=== PATIENT | male | born 1965 | race Two or more races ===

== ENCOUNTER 2016-03-29 14:41 | Emergency (ER) | payer OTHER ==
[2016-03-29] MEDS ORDERED: OSELTAMIVIR 75 MG CAPSULE PO STA (15:06)
[2016-03-29] MEDS ORDERED: OSELTAMIVIR 75 MG CAPSULE PO ONE (15:07)
[2016-03-29] MEDS ORDERED: ONDANSETRON ODT 4 MG TABLET TL STA (15:08)
[2016-03-29] MEDS ORDERED: ONDANSETRON ODT 4 MG TABLET ONE (15:09)
== END 2016-03-29 15:15 | disposition home or self-care (01) ==
DX: R09.81 Nasal congestion (principal); R05 Cough; R53.81 Other malaise; M79.1 Myalgia; R53.1 Weakness; Z85.028 Personal history of other malignant neoplasm of stomach; Z92.21 Personal history of antineoplastic chemotherapy; Z92.3 Personal history of irradiation
CPT/HCPCS: 99283; A9270; Q0162

== ENCOUNTER 2020-10-27 08:57 | Emergency (ER) | payer OTHER ==
[2020-10-27 09:09] VITALS: BP 110/78
--- NOTE | 2020-10-27 09:20 | ED Physician Documentation ---
PD HPI OPHTHO - Stated complaint Stated Complaint: R EYE CONCERN - Chief complaint Chief Complaint: Heent - History obtained from History obtained from: Patient - History of Present Illness Timing - onset: Today (Showering this morning, he looked in the mirror and noted some redness around the right medial surface of the eye. There was no blood out from the eye just on this subconjunctival area. No noted trauma. No irritation. No change in vision.) Timing - details: Abrupt onset (he is not sure when started but it was not there when getting ready for bed last night.) Location: Right Quality / character: No: Burning, Aching Associated symptoms: Redness (medial aspect right eye.). No: FB sensation, Decreased vision, Loss of vision Contributing factors: No: FB, Blunt trauma, Wears contacts Similar symptoms before: Has not had sx before Recently seen: Not recently seen Review of Systems Constitutional: denies: Fever, Chills Eyes: denies: Decreased vision, Photophobia, Discharge, Irritation Nose: denies: Rhinorrhea / runny nose, Congestion Throat: denies: Sore throat Respiratory: denies: Cough PD PAST MEDICAL HISTORY - Past Medical History Cardiovascular: None GI: Other - Past Surgical History Past Surgical History: No - Present Medications Home Medications: Ambulatory Orders Medication Instructions Recorded Confirmed Zolpidem Tartrate [Ambien] 1 tab PO PRN PRN 10/27/20 10/27/20 - Allergies Allergies/Adverse Reactions: Allergies Allergy/AdvReac Type Severity Reaction Status Date / Time No Known Drug Allergies Allergy Verified 10/27/20 09:09 - Social History Does the pt smoke?: No Smoking Status: Never smoker Does the pt drink ETOH?: No Does the pt have substance abuse?: No - Immunizations Immunizations are current?: Yes - POLST Patient has POLST: No PD ED PE NORMAL - Vitals Vital signs reviewed: Yes - General General: Alert and oriented X 3, No acute distress, Well developed/nourished - HEENT HEENT: PERRL, EOMI, Other (There is a small subconjunctival hemorrhage on the right medial eye from the 2 to 6 o'clock position. No obvious foreign body. Anterior and posterior chambers appear normal.) Results - Vitals Vitals: Vital Signs - 24 hr 10/27/20 09:02 Temperature 36.5 C Heart Rate 63 Respiratory 16 Rate Blood Pressure 110/78 O2 Saturation 99 Oxygen O2 Source Room air Departure - Departure Disposition: 01 Home, Self Care Clinical Impression: Subconjunctival hematoma Qualifiers: Laterality: right Qualified Code(s): H11.31 - Conjunctival hemorrhage, right eye Condition: Stable Record reviewed to determine appropriate education?: Yes Instructions: ED Eye Injury Subconj Hemorrhage Follow-Up: Marina Britt MD [Primary Care Provider] - Comments: A small blood vessel under the top layer of the eye popped open and has a small collection of blood there. This is benign and should resolve and resorb over several days to a week. It commonly comes from a motor mild and apparent injury such as rubbing the eye or an increased pressure such as sneezing or coughing.
== END 2020-10-27 09:41 | disposition home or self-care (01) ==
LOC: ED 08:57
DX: H11.31 Conjunctival hemorrhage, right eye (principal)
CPT/HCPCS: 99281